=== PATIENT | male | born 1950 | race Caucasian/White ===

== ENCOUNTER 2019-11-25 16:42 | Emergency (ER) | payer MEDICARE, MEDICAID ==
[~2019-11-25] VITALS: Ht 190.5 cm; Wt 159.9 kg
--- NOTE | ~2019-11-25 | EKG ---
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
[2019-11-25 17:26] LABS: ABSOLUTE BASOPHILS 0.1 thou/uL (0.0-0.2); ABSOLUTE EOSINOPHILS 0.4 thou/uL (0.0-0.7); ABSOLUTE LYMPHOCYTES 1.6 thou/uL (0.8-5.3); ABSOLUTE MONOCYTES 0.7 thou/uL (0.0-1.2); ABSOLUTE NEUTROPHILS 4.3 thou/uL (1.6-8.1); EOSINOPHILS 5.4 %; HEMATOCRIT 37.2 % (42.0-52.0); HEMOGLOBIN 12.6 gm/dL (14.0-18.0); LYMPHOCYTES 22.6 %; MCH 32.9 pg (26.0-34.0); MCHC 33.9 g/dL (28.0-37.0); MCV 97.1 fL (80.0-100.0); MONOCYTES 9.9 %; MPV 9.8 fl. (7.2-11.1); NUCLEATED RBCS 0 /100WBC; PLATELET COUNT* 181 thou/uL (150-400); POLYS 61.1 %; RBC 3.83 mil/uL (4.50-6.00); RDW-CV 14.6 % (10.5-14.5); WBC 7.1 thou/uL (4.0-11.0)
[2019-11-25 17:35] LABS: APTT 27.4 Seconds (25.0-31.3); CALCIUM 8.3 mg/dL (8.5-10.1); CREATININE 0.9 mg/dL (0.6-1.3); INR 1.1; POTASSIUM 4.3 mmol/L (3.5-5.1); PROTIME 10.8 Seconds (9.20-11.50)
[2019-11-25 17:45] LABS: ALBUMIN 3.2 g/dL (3.4-5.0); TOTAL BILIRUBIN 0.3 mg/dL (<0.1-1.0); TOTAL PROTEIN 6.9 g/dL (6.4-8.2)
[2019-11-25 19:03] LABS: SALICYLATE < 2.8 mg/dL (2.8-20.0)
[2019-11-25 19:04] LABS: ACETAMINOPHEN < 2 ug/mL (10-30); ALCOHOL < 10 mg/dL (<10)
[2019-11-25 20:45] LABS: URINE BILIRUBIN NEGATIVE (Negative); URINE BLOOD NEGATIVE (Negative); URINE CLARITY CLEAR; URINE COLOR YELLOW; URINE GLUCOSE-RANDOM NEGATIVE (Negative); URINE KETONES NEGATIVE (Negative); URINE LEUKOCYTES-REFLEX NEGATIVE (Negative); URINE NITRITE-REFLEX NEGATIVE (Negative); URINE PROTEIN NEGATIVE (Negative); URINE SPECIFIC GRAVITY >= 1.030 (1.005-1.030)
[2019-11-25 21:03] LABS: AMP/METHAMP Negative (Negative); BARBITURATES Negative (Negative); BENZODIAZEPINES Negative (Negative); COCAINE Negative (Negative); METHADONE Negative (Negative); OPIATES Negative (Negative); PCP Negative (Negative); THC Negative (Negative)
[2019-11-26 00:11] VITALS: BP 124/59
== END 2019-11-26 00:11 | disposition home or self-care (01) ==
LOC: M.ERS 16:42
PROVIDERS: Emergency Medicine Emergency Medical Services
DX: F32.9 Major depressive disorder, single episode, unspecified (principal); R06.02 Shortness of breath; R60.0 Localized edema; E78.5 Hyperlipidemia, unspecified; I48.91 Unspecified atrial fibrillation

== ENCOUNTER 2020-02-16 11:15 | Inpatient (IN) | payer MEDICARE, MEDICAID ==
[~2020-02-16] VITALS: Ht 182.9 cm; Wt 169.5 kg
--- NOTE | ~2020-02-16 | CON ---
[address] [address] CONSULTATION Name: MARYLINENEDELIA Cheng Room: [address] IN M.R.#: [id number] Admission: 02/16/20 Attend Phys: Patricia Dueñas Discharge: Date of : 50 Report #: [id number] THIS REPORT FOR: //name// cc: Lan Nguyen MD, Srinath MD ~ THIS REPORT FOR: //name// CC: Patricia Retana DATE OF SERVICE: 02/22/2020 HISTORY OF PRESENT ILLNESS: This is a 69-year-old male patient who was evaluated by me for headache. The patient is very irritated at the moment and his cooperation is not very good. The best I can tell his headache started about 2-3 days ago. It started spontaneously without any trauma. It involves the whole head. He does not know any aggravating or relieving factor for the headache, but he indicates it does fluctuate to some extent. REVIEW OF SYSTEMS: A 14-point review of system is carried out. He has a history of wheezing for which he has been tried on medications and has been admitted to the hospital. He said that is a chronic problem, which is going on since he was a child. He has a history of anxiety and depression, but he will not talk too much about it. He is on a pretty heavy dose of bupropion and he is also on duloxetine, so I suspect he has a significant amount of depression in the baseline. His breathing problem is better. As I understand from the records, he has a history of atrial fibrillation and he has been on chronic anticoagulation. He has a history of edema and hyperlipidemia. This is the 14-point review of system, which I can get in this patient. PAST MEDICAL HISTORY: Positive for bronchial asthma. FAMILY HISTORY: Unremarkable. SOCIAL HISTORY: He says he does not drink any alcohol. He used to smoke, but does not smoke now. PHYSICAL EXAMINATION: Indicates he is alert, irritated and angry, but he can tell me what month and what date it is. He knows what hospital he is in. His cranial nerve examination 2-12 is unremarkable. His strength, sensation, reflexes and tone looks symmetrical, although he is weak in all 4 extremities. He has position sense in the lower extremities. Reflexes are difficult to tell as he did not cooperate. He did not cooperate with the fundus examination. He does not appear to have any meningeal sign. He is an obese individual who does not have any thyroid mass. There is no carotid bruit. He does not appear to be much short of breath when I saw at. Cardiac examination [place] [address] CONSULTATION Name: MARYLINENEDELIA Skylar Room: [address] IN .R.#: [id number] Admission: 02/16/20 Attend Phys: Patricia Dueñas Discharge: Date of : 50 Report #: [id number] pressure is 149/92, respirations are 20, pulse is 85, temperature is 98. He had an MRI of the brain, which does not demonstrate any abnormality of the brain, but has a problem with the left parotid gland. His blood gases does not show much increase in carbon dioxide. IMPRESSION: Pretty difficult to form because the patient has psychiatric issues and is complaining of headache now without any objective findings. I cannot look at the fundus to rule out the possibility of pseudotumor cerebri, but the headache is of recent onset. I talked to him that he needs some further workup. I suggested that we get his sed rate done. I do not know how good his memory is. I will get a TSH and vitamin B12 done. I will also get an MRV done as well as MRA of the rincon of [place] done because he is complaining of this pretty severe headache. His parotid problems need to be treated, but I am not sure that has anything to do with the patient's headache, but I just wanted to make sure there is no intracranial sinus thrombosis in this patient. The patient understood all those. He reluctantly agreed for the testing. He wants to hold on to the spinal tap, but we may have to do that if the patient's problems continue. Thank you very much for this referral. By: [id number] Duran MD /christine
[2020-02-16 11:17] VITALS: BP 131/85
[2020-02-16] MEDS ORDERED: LIPITOR40 MG PO (11:17)
[2020-02-16] MEDS ORDERED: BUPROPION XL150 MG PO (11:18)
[2020-02-16] MEDS ORDERED: FUROSEMIDE 40 M40 MG PO (11:18)
[2020-02-16] MEDS ORDERED: GAVILAX17 GM PO (11:18)
[2020-02-16] MEDS ORDERED: KLOR-CON M2020 MEQ PO (11:19)
[2020-02-16] MEDS ORDERED: REXULTI2 MG PO (11:19)
[2020-02-16] MEDS ORDERED: FLOMAX0.4 MG PO (11:19)
[2020-02-16] MEDS ORDERED: CARVEDILOL12.5 MG PO (11:20)
[2020-02-16] MEDS ORDERED: VITAMIN D350 MCG PO (11:20)
[2020-02-16] MEDS ORDERED: ELIQUIS5 MG PO (11:21)
[2020-02-16] MEDS ORDERED: DOK100 MG PO (11:21)
[2020-02-16] MEDS ORDERED: SENNA PLUS TAB1 EACH PO (11:21)
[2020-02-16] MEDS ORDERED: DRIZALMA SPRINK60 MG PO (11:21)
[2020-02-16] MEDS ORDERED: MAGNESIUM CITR296 ML PO (11:22)
[2020-02-16] MEDS ORDERED: TYLENOL EXTRA500 MG PO (11:22)
[2020-02-16] MEDS ORDERED: IPRAT-ALBUT 0.5-3 ML INH (11:22)
[2020-02-16] MEDS ORDERED: NYSTATIN1 EA10 TOP (11:23)
[2020-02-16] MEDS ORDERED: ZESTRIL2.5 MG PO (11:23)
[2020-02-16 12:05] LABS: ABSOLUTE BASOPHILS 0.1 thou/uL (0.0-0.2); ABSOLUTE EOSINOPHILS 0.4 thou/uL (0.0-0.7); ABSOLUTE LYMPHOCYTES 1.4 thou/uL (0.8-5.3); ABSOLUTE MONOCYTES 0.7 thou/uL (0.0-1.2); ABSOLUTE NEUTROPHILS 4.9 thou/uL (1.6-8.1); BASOPHILS 0.8 %; HEMATOCRIT 38.5 % (42.0-52.0); HEMOGLOBIN 12.9 gm/dL (14.0-18.0); LYMPHOCYTES 18.3 %; MCH 32.5 pg (26.0-34.0); MCHC 33.6 g/dL (28.0-37.0); MCV 96.7 fL (80.0-100.0); MONOCYTES 9.3 %; MPV 9.7 fl. (7.2-11.1); NUCLEATED RBCS 0 /100WBC; PLATELET COUNT* 176 thou/uL (150-400); POLYS 65.6 %; RBC 3.98 mil/uL (4.50-6.00); WBC 7.5 thou/uL (4.0-11.0)
[2020-02-16 12:17] LABS: CALCIUM 7.6 mg/dL (8.5-10.1); CREATININE 0.9 mg/dL (0.6-1.3); POTASSIUM 3.6 mmol/L (3.5-5.1)
[2020-02-16 12:18] LABS: APTT 27.5 Seconds (25.0-31.3); INR 1.1; PROTIME 11.5 Seconds (9.20-11.50)
[2020-02-16 12:28] LABS: MAGNESIUM 1.9 mg/dL (1.8-2.4); TOTAL BILIRUBIN 0.4 mg/dL (<0.1-1.0); TOTAL PROTEIN 6.6 g/dL (6.4-8.2)
--- NOTE | 2020-02-16 13:35 | EKG ---
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: [facility] : 1950 Requested By: Edmund Durham Order Number: [id number] MD: Joesph Rogers Measurements Intervals [place] Rate: 84 P: 14 SD: 175 QRS: -36 QRSD: 154 T: 4 QT: 391 QTc: 463 Interpretive Statements Sinus rhythm Ventricular premature complex Right bundle branch block Compared to ECG 11/25/2019 17:24:05 Ventricular premature complex(es) now present Electronically Signed On 02-16-2020 13:33:33 CDT by Joesph Rogers [email or web address] <ELECTRONICALLY SIGNED> By: Joesph Rogers MD, FAC 02/16/20 1333 1130 1130 Joesph Rogers MD, [facility] /EPI
[2020-02-16 15:18] VITALS: BP 136/73
[2020-02-16 15:24] VITALS: BP 134/74
--- NOTE | 2020-02-16 18:11 | NUR ---
PT A&Ox4. VITALS STABLE. IV PATENT. ON RA. ADMIT COMPLETE. CALL LIGHT WITHIN REACH. FALL PRECAUTIONS IN PLACE. CALL LIGHT WITHIN REACH.
[2020-02-16 20:00] VITALS: BP 150/91
[2020-02-17 00:25] VITALS: BP 141/76
[2020-02-17 04:37] VITALS: BP 142/80
[2020-02-17 04:54] LABS: HEMOGLOBIN 13.1 gm/dL (14.0-18.0); MCH 32.7 pg (26.0-34.0); MCHC 33.7 g/dL (28.0-37.0); MCV 97.2 fL (80.0-100.0); MPV 10.5 fl. (7.2-11.1); RBC 4.01 mil/uL (4.50-6.00); WBC 9.7 thou/uL (4.0-11.0)
[2020-02-17 05:18] LABS: CALCIUM 7.9 mg/dL (8.5-10.1); MAGNESIUM 2.1 mg/dL (1.8-2.4); PHOSPHORUS* 2.8 mg/dL (2.5-4.9); POTASSIUM 3.6 mmol/L (3.5-5.1)
--- NOTE | 2020-02-17 06:12 | NUR ---
PATIENT SLEPT MOST OF THE NIGHT. IV REMAINS SALINE LOCKED. PATIENT WAS PLACED ON OXYGEN AT 2L AND IS SATTING ABOUT 94%. LUNGS REMAINS WHEEZY. PATIENT HAS BEEN INCONTINENT OF BOWEL AND BLADDER. WILL CONTINUE TO MONITOR.
[2020-02-17 08:00] VITALS: BP 154/95
--- NOTE | 2020-02-17 11:22 | NUR ---
ASSUMED PT CARE AT 0730, PT SITTING UP IN BED, A&OX4, SATTING 94% ON 2 L WITH AUDIBLE WHEEZES AND HAD NO C/O PAIN OR SHORTNESS OF BREATH. PT GOAL IS TO TITRATE O2 DOWN AND DECREASE WHEEZES. PT HAD EDEMA NOTED BILATERALLY ON LLE'S AND FEET. PT REFUSED SENNA TODAY R/T DECREASED CONSTIPATION, LAST BM WAS T-1. AM ASSESSMENT CHARTED, MEDS PER MAR, BED IN LOW POSITION, BED ALARM ON, CALL LIGHT W/IN REACH, WILL CONTINUE POC.
[2020-02-17 12:00] VITALS: BP 119/81
--- NOTE | 2020-02-17 14:15 | NUR ---
Pt lives at [facility]. [phone]. Pt has needed DME. Pt to be able to dc back to [facility] when ready to dc. HARESH spoke with Blanca at [facility] who was hopeful pt could go to SNF at dc from hospital if pt would qualify to try to help with strengthening. HARESH explained pt would need to be in agreement, family, and pt would need to qualify for the need for SNF but could keep in mind as a possible dc plan if needed. SW to continue to follow to assist with safe dc planning.
[2020-02-17 16:10] VITALS: BP 109/72
--- NOTE | 2020-02-17 17:21 | NUR ---
NO ACUTE CHANGES THROUGHOUT SHIFT, REFER TO CHARTING. PT INCONTINENT OF BOWEL AND BLADDER MULTIPLE TIMES THROUGHOUT SHIFT. POSSIBLE DC BACK TO [facility] TOMORROW. DENIES ANY PAIN OR SHORTNESS OF BREATH. MEDS PER DEC, HOURLY ROUNDING OBSERVED, CALL LIGHT W/IN REACH, BED IN LOW POSITION, BED ALARM ON, WILL CONTINUE POC.
[2020-02-17 20:55] VITALS: BP 136/83
[2020-02-18] VITALS: BP 137/86
[2020-02-18 04:00] VITALS: BP 155/64
[2020-02-18 04:51] LABS: ALBUMIN 3.1 g/dL (3.4-5.0); CALCIUM 8.3 mg/dL (8.5-10.1); CREATININE 0.9 mg/dL (0.6-1.3); MAGNESIUM 2.1 mg/dL (1.8-2.4); PHOSPHORUS* 2.9 mg/dL (2.5-4.9); POTASSIUM 3.7 mmol/L (3.5-5.1)
--- NOTE | 2020-02-18 05:35 | NUR ---
2 + EDEMA IN LOWER EXTREMETIES, WEHEEZING SOUNDS IN LUNGS. INCONTINENT OF URINE. SLEPT THROUGH THE SHIFT, NO REPORTS OF PAIN OR NAUSEA OR VOMITING. PLAN IS TO CONTINUE BREATHING TREATMENTS AND ROCEPHIN. WEAN OFF O2. WILL CONTINUE TO FOLLOW PLAN OF CARE.
[2020-02-18 07:53] VITALS: BP 162/93
--- NOTE | 2020-02-18 11:33 | NUR ---
ASSUMED PT CARE AT 0730, PT SITTING UP IN BED, A&OX4, SATTING 94% ON 1L, TRACING SR ON THE [employer] INDUSTRIAL DEVELOPMENT CONSULTANT AND HAS NO C/O PAIN OR SHORTNESS OF BREATH. PT CONTINUES TO BE INCONTINENT OF BOWEL AND BLADDER THIS MORNING AND HAS EDEMA ON LE'S AND FEET. PT GOAL IS TO TITRATE OFF O2 AND STEROIDS SO HE CAN WORK ON DISCHARGE PLANNING BACK TO [facility]. AM ASSESSMENT CHARTED, MEDS GIVEN PER MAR, BED IN LOW POSITION, BED ALARM ON, CALL LIGHT W/IN REACH, HOURLY ROUNDING OBSERVED, WILL CONTINUE POC.
[2020-02-18 13:59] VITALS: BP 149/82
[2020-02-18 16:00] VITALS: BP 134/73
--- NOTE | 2020-02-18 18:33 | NUR ---
NO ACUTE CHANGES THROUGHOUT SHIFT, PT STILL ON 1L NC SATTING MID 90'S, TRACING ST ON THE TELECOM SALES CONSULTANT. PT CONTINUED TO BE INCONTINENT OF BOWEL AND BLADDER AND HAD NO C/O PAIN OR SHORTNESS OF BREATH. MED GIVEN PER DEC, HOURLY ROUNDING OBSERVED, TURNED Q2H, BED IN LOW POSITION, CALL LIGHT W/IN REACH, BED ALARM ON, WILL CONTINUE POC.
[2020-02-18 20:29] VITALS: BP 126/68
[2020-02-19] VITALS: BP 149/73
[2020-02-19 03:30] VITALS: BP 126/79
--- NOTE | 2020-02-19 04:49 | NUR ---
SLEPT WELL THROUGH SHIFT. INCONTINENT OF URINE. ON AL OF O2 STILL NOT ABLE TO MAINTAIN OVER 90% ON ROOM AIR. BLE EDEMOUS AND RED. SR/BBB ON MONITOR. WHEEZING AND SOB EASILY WHEN MOVED OR LYING DOWN. RECEIVED ALL MEDS SCHEDULED. WILL CONTINUE TO FOLLOW PLAN OF CARE.
[2020-02-19 05:38] LABS: GLYCOHEMOGLOBIN (HGB A1C) 5.8 % (4.8-5.6)
[2020-02-19 07:48] VITALS: BP 122/89
--- NOTE | 2020-02-19 10:54 | NUR ---
ASSUMED PT CARE AT 0730, PT SITTING UP IN BED, A&OX4, SATTING 94% ON 1L, TRACING SR W/ A BBB ON THE MICROGRINDER OPERATOR AND HAS NO C/O PAIN OR SHORTNESS OF BREATH. PT SAW THIS MORNING AND GOAL IS TO TITRATE OFF O2 TODAY AND WORK W/ PT TO INCREASE ACTIVITY. PT HGBA1C ELEVATED, METFORMIN GIVEN PER MAR. AM ASSESSMENT CHARTED, MEDS GIVEN PER MAR, HOURLY ROUNDING OBSERVED, BED IN LOW POSITION, CALL LIGHT W/IN REACH, BED ALARM ON, WILL CONTINUE POC.
[2020-02-19 12:18] VITALS: BP 147/87
[2020-02-19 18:35] VITALS: BP 132/83
--- NOTE | 2020-02-19 18:41 | NUR ---
NO ACUTE CHANGES THROUGHOUT SHIFT, PT CONTINUES TO BE INCONTINENT OF BOWEL AND BLADDER AND HAD A BM TODAY. PT WEANED COMPLETELY OFF OF O2 AND SATTING IN MID 90'S. PT HAD NO C/O SHORTNESS OF BREATH OR PAIN. DIETARY CONSULT IN PLACE FOR ELEVATED HGBA1C AND BLOOD SUGARS. MEDS GIVEN PER MAR, BED IN LOW POSITION, BED ALARM ON, CALL LIGHT W/IN REACH, WILL CONTINUE POC.
[2020-02-19 20:00] VITALS: BP 145/71
[2020-02-20] VITALS (7 sets, daily range): BP systolic 119–169; BP diastolic 65–96
--- NOTE | 2020-02-20 04:39 | NUR ---
ASSUMED CARE FROM DAY SHIFT , PT RESTING IN BED, DENIES PAIN OR SOA. ASSESSSMENT COMPLETED PT INCONTINENT OF LARGE AMOUBT OF URINE. SKIN INTACT. PT TURN EVERY 2 HOURS.REFUELER SHOWS NSR WITH BBB 70'S. PT RESTED WELL THROUGHOUT HOURLY ROUNDS. WILL REPORT CHANGES OR ABNORMAL FINDINGS.
--- NOTE | 2020-02-20 12:33 | NUR ---
Per , anticipate dc tomorrow. Pt continues to be wheezy today.
--- NOTE | 2020-02-20 19:02 | NUR ---
ASSUMED PT CARE REPORT RECEIVED FROM NURSE PT IS AOX4 FORGETFUL. ON RA. THEN PT COMPLAINS OF SOB. PLACED ON 2 L NC. OUT OF BED TO CHAIR WITH HELP MAXIMUM HELP AND GAIT BELT. INCONTINENT. BEDBATH GIVEN. VSS. PT COMPLAINS OF HEADACHE TYLENOL GIVEN. CALL LIGTH WITHIN REACH.
--- NOTE | 2020-02-20 19:06 | NUR ---
CHEST AMPARO SHOWS PNEUMONIITS. BREATHING TREATMENT ON EMAR. PT LUNG SOUND WHEEZY.
[2020-02-21 04:00] VITALS: BP 115/77
[2020-02-21 08:00] VITALS: BP 124/67
--- NOTE | 2020-02-21 09:40 | NUR ---
ASSUMED PT CARE REPORT RECEIVED FROM NURSE. PT IS AOX4. COMPLAINS OF HEADACHE. FIORICET GIVEN ALONG WITH OTHER MEDICATIONS. HOWEVER PT STILL COMPLAINS OF HEADACHE. MADE AWARE FOR NEW ORDER. PULMONOLOGY CONSULTED. INCENTIVE SPIROMETER ORDERED. ABG ORDERED. CHANGE IN BREATHING TREATMENT MADE. O2 TO BE TITRATED TO 2 L AND MAINTAIN OXYGENATION ABOVE 90%. PT OUT OF BED TO CHAIR. VSS. TRACING SR BBB / PVC ON HORSE FARM MANAGER. CALL LIGHT AT REACH. WILL CONTINUE TO MONITOR
[2020-02-21 09:59] LABS: BE 1.3 mmol/L (-2 to +3); PO2 82.5 mmHg (75.0-100.0); pH 7.391 (7.340-7.450)
--- NOTE | 2020-02-21 11:39 | NUR ---
PT INSTRUCTED HOW TO USE INCENSIVE SPIROMETER AT BEDSIDE. OXYGEN TITRATED DOWN TO 2 L NC. PHNERGAN AND BENADRYL IV GIVEN ORDERED TO MAKE PT FEEL BETTER WITH MIGRAINE. NEW IV PLACED IN RIGHT FOREARM. CALL LIGHT AT REACH. WILL CONTINUE TO MONITOR
[2020-02-21 12:28] VITALS: BP 138/61
--- NOTE | 2020-02-21 14:03 | NUR ---
DC pending medical stability; possible dc tomorrow. SW to continue to follow to assist with safe dc planning.
--- NOTE | 2020-02-21 14:58 | NUR ---
CT OF HEAD PERFORMED ORDERED. COMMUNICATED WITH RADIOLOGIST WHO STATED THAT THE PATIENT RESULT ARE CONCERNING. THIS WAS COMMUNICATED TO DR SCHAEFER WHO ORDERED A STAT MRI. MRI QUESTIONAIRE FILLED WITH HELP FROM [facility] NURSE. ACCORDING TO THE NURSE I SPOKE TO PT DOES NOT HAVE HX OF STROKE. PT HAS BEEN WEAK SINCE ADMISSION AND [facility]CHA[facility]. WILL CONTINUE TO MONITOR.
--- NOTE | 2020-02-21 16:39 | NUR ---
MRI RESULT CAME BACK. NO STROKE NOTED PER RESULT.
[2020-02-21 16:47] VITALS: BP 115/70
--- NOTE | 2020-02-21 17:11 | NUR ---
O2 TITRATED DOWN TO 1/2 A LITER OF O2 ON NC. O2 SATURATION ON 1/2 L O2 IS 97%. NO SHORTNESS OF BREATH , PT HAS BEEN USING INCENSIVE SPIROMETER. PT USED THE IS AT THIS TIME. PT REACHES 1000 LEVEL ON SPIROMETER. METFORMIN GIVEN. PT STATES HE FEELS BETTER. IV ANTIBIOTIC ADMINISTERED ORDERED. CALL IGHT WITHIN REACH
--- NOTE | 2020-02-21 18:43 | NUR ---
pt complains of headache again this afternnon. rated pain level at a 10/10. dr was notified of mri result suggesting sialadenitis. fioricet given again for headache. pt also repostioned. will continue to monitor
[2020-02-21 20:00] VITALS: BP 113/69
[2020-02-21 23:26] VITALS: BP 130/76
[2020-02-22 04:00] VITALS: BP 130/69
--- NOTE | 2020-02-22 04:43 | NUR ---
PATIENT HAS FREQUENT C/O HEADACHE DESPITE MEDICATION, RELAXATION, AND REPOSITIONING. PATIENT STATES OFTEN THAT HE WANTS TO BE RELEASED BACK TO [facility]. PATIENT REMAINS ON 0.5L O2 NC. AUDIBLE WHEEZES. PATIENT WAS RELUCTANT TO TAKE BREATHING TX, HOWEVER, EDUCATION PROVIDED ON HIS DIAGNOSIS AND IMPORTANCE OF TREATMENT. PATIENT AGREED TO BREATHING TX. PATIENT ALSO ENCOURAGED TO USE INCENTIVE SPIROMETER AND WITNESSED PATIENT USING A FEW TIMES THIS SHIFT. PATIENT INCONTINENT OF LARGE AMOUNTS OF URINE. JANES CARE PROVIDED WITH INCONTINENCE CHECKS.
[2020-02-22 08:00] VITALS: BP 149/92
--- NOTE | 2020-02-22 12:21 | NUR ---
Per , anticipate that Pt will be ready to dc tomorrow. Spoke with Molly at [facility], they would like skilled for pt prior to returning, Dr in agreement. Updated Pt and sister, faxed referral to [facility], awaiting decision to accept. Following.
--- NOTE | 2020-02-22 15:40 | NUR ---
ASSUMED PT CARE AT 0730AM REPORT RECEIVED FROM NURSE.PTIS AOX4. COMPLAINS OF HEADACHE. NO MEDICINE DUE AT 0800 AM YET. VSS. O2 SATURATION 94% ON RA. PT REMAINS OF ROOM AIR AT THIS TIME. USES INCENTIVE SPIROMETER MULTIPLE TIME. ACCUCHECK. ONETIME DOSE OF REGLAN AND TORADOL GIVEN. PT STATES RELIEF FROM HEADACHE.BUT RELIEF DID NOT LAST LONG. PT THEN WAS GIVEN NORCO FOR HEADACHE. PT ASSISTED OUT OF BED TO CHAIR, ATE BREAKFAST. WENT FOR MRA AT 1400. ATIVAN GIVEN PRIOR TO MRA TESTING. NO FURTHER COMPLAINT. CALL LIGHT WITHIN REACH WILL CONTINUE TO MONITOR PT.
[2020-02-22 16:00] VITALS: BP 120/76
--- NOTE | 2020-02-22 18:21 | NUR ---
pt complains of sob this pm at around 1700. wheezy sound of lungs. oxygen provided at 2 l nc. o2 saturation is 97% on 2 l nc. the doctor was notified.
--- NOTE | 2020-02-22 18:55 | CON ---
[address] [address] CONSULTATION Name: ENEDELIA COULTER Room: [address] IN M.R.#: [id number] Admission: 02/16/20 Attend Phys: Patricia Dueñas Discharge: Date of : 50 Report #: [id number] THIS REPORT FOR: //name// cc: Lan Nguyen MD, Srinath MD ~ THIS REPORT FOR: //name// CC: Patricia Retana DATE OF SERVICE: 02/22/2020 I was asked to see this 69-year-old gentleman for acute respiratory failure. HISTORY OF PRESENT ILLNESS: The patient has remote minimal history of smoking. He is a long-term resident. He was brought to the Emergency Room via EMS for shortness of breath. He has asthma. He has been on and off oxygen since his admission. He does snore and has excessive daytime sleepiness, but has not had sleep study. He is obese. He has history of paroxysmal atrial fibrillation, is on anticoagulation. His shortness of breath has improved. He has occasional cough. He denies fever or chills. He denies body ache. He denies chest pain. PAST MEDICAL HISTORY: Asthma, paroxysmal atrial fibrillation, hyperlipidemia, obesity, anxiety and depression. ALLERGIES: No known drug allergies. MEDICATIONS: Currently, he is on Brovana, budesonide, doxycycline, DuoNeb, Levaquin, metformin, Solu-Medrol 62.5 mg b.i.d. SOCIAL HISTORY: He is a long-term resident. FAMILY HISTORY: Hypertension. REVIEW OF SYSTEMS: As mentioned as above. He has had lower extremity edema which is improving. Other systems are otherwise negative. PHYSICAL EXAMINATION: GENERAL: This is an obese gentleman. VITAL SIGNS: His O2 saturation on 0.5 liter of oxygen is 93%, respiratory rate 18, heart rate 84, blood pressure 130/69, temperature 36.5. HEENT: Normocephalic, atraumatic. Pupils equal, round, reactive to light. There is shallow oropharynx. Nose is clear. NECK: There is no lymphadenopathy [place] [address] CONSULTATION Name: ENEDELIA COULTER Room: [address] IN [facility]#: [id number] Admission: 02/16/20 Attend Phys: Patricia Dueñas Discharge: Date of : 50 Report #: [id number] CARDIOVASCULAR: Regular rate and rhythm. PMI is nondisplaced. CHEST: Inspection is normal. LUNGS: There are bibasilar crackles, dullness at the bases. ABDOMEN: Soft and obese. Bowel sounds are good. There is no mass. EXTREMITIES: There is edema. LYMPHATICS: There is no lymphadenopathy. NEUROLOGIC: Alert. SKIN: Chronic changes. LABORATORY DATA: I reviewed the following lab data: CT of the chest on 02/15 did show multiple pulmonary nodules, right more than left; ground glass opacity, anterior right upper lung appears to be chronic. Chest x-ray on 02/20/2020 shows bibasilar infiltrates/atelectasis. WBC 9.7, hemoglobin 13.1, platelets 175. Sodium 142, potassium 3.7, chloride 106, CO2 of 31, BUN 29, creatinine 0.9, glucose 154. Troponin is less than 0.06. BNP 618. ABG on 3 liters of oxygen yesterday; pH 7.39, pCO2 of 45, pO2 of 82. IMPRESSION: 1. Acute on chronic hypoxemic hypercarbic respiratory failure. I suspect he has obesity hypoventilation and chronic hypoxemia. His worsening of respiratory status is due to atelectasis, acute bronchitis versus pneumonia, acute exacerbation of asthma. I highly suspect he has obstructive sleep apnea-hypopnea syndrome. Rule out acute diastolic congestive heart failure. 2. Abnormal chest x-ray/ct of chest. 3. Acute bronchitis versus pneumonia. 4. Asthma with acute exacerbation. 5. Obesity, snoring and excessive daytime sleepiness, highly suspect he has obstructive sleep apnea-hypopnea syndrome and obesity hypoventilation syndrome. 6. Paroxysmal atrial fibrillation, on apixaban. PLAN AND RECOMMENDATIONS: 1. Titrate FiO2 to keep O2 saturation 90%. 2. Incentive spirometer to use multiple times an hour. 3. Continue Brovana. 4. Continue Pulmicort. 5. Continue steroid, may change to prednisone as his respiratory status is improving. 6. I do recommend a sleep study as an outpatient. 7. Continue antibiotic for a total of 7 days. 8. Continue apixaban. 9. Echocardiogram if it is not done. 10. I suspect he would require oxygen at discharge. 11. ct showed b lat pulm nodules, i do recommend pet scan as out pt. The findings and recommendations were discussed with the [place] [address] CONSULTATION Name: ENEDELIA COULTER Room: [address] IN M.R.#: [id number] Admission: 02/16/20 Attend Phys: Patricia Dueñas Discharge: Date of : 50 Report #: [id number] Thank you very much for allowing me to participate in care of this very nice gentleman. <ELECTRONICALLY SIGNED> By: George Peter MD 02/22/20 1855 [id number] [id number] Peter MD /nt
[2020-02-22 20:00] VITALS: BP 141/95
[2020-02-23 00:09] VITALS: BP 156/82
[2020-02-23 04:01] VITALS: BP 133/76
--- NOTE | 2020-02-23 05:09 | NUR ---
ASSESSMENTS COMPLETED AT BEDSIDE, PLEASE SEE CHARTING FOR DETAILS. MEDICATIONS ADMINISTERED PER DEC. PT HAS REPORTED NO PAIN THIS SHIFT BUT HAS STATED THAT HE IS UNCOMFORTABLE AND UNABLE TO SLEEP. NEW ORDERS RECIEVED BY PHYSICIAN AND WORKED EFFECTIVELY PT IS CURRENTLY ASLEEP WITH BED ALARM ON AND CALL LIGHT WITHIN REACH.
[2020-02-23] MEDS ORDERED: BROVANA15 MCG/2 M INH (10:49)
[2020-02-23] MEDS ORDERED: DOXYCYCLINE 10100 MG PO (10:49)
[2020-02-23] MEDS ORDERED: PULMICORT0.5 MG/2 M INH (10:49)
[2020-02-23] MEDS ORDERED: BUPROPION XL150 MG PO (10:49)
[2020-02-23] MEDS ORDERED: DRIZALMA SPRINK60 MG PO (10:49)
[2020-02-23] MEDS ORDERED: PREDNISONE 10 M10 MG PO (10:50)
[2020-02-23 11:37] VITALS: BP 151/75
--- NOTE | 2020-02-23 11:57 | NUR ---
Pt discharging to [facility] Skilled today, facility to bulk picker at 3pm. Faxed dc orders. Chart copied. Nurse report number is [id number]. Updated Pt's sister and [facility].
--- NOTE | 2020-02-23 13:28 | NUR ---
RAFIA CALLED TO [facility] AT OR. WILL DISCONTINUE IV AND TELE AND DISCHARGE TO OR VIA WHEELCHAIR VAN.
== END 2020-02-23 17:15 | DRG 189 ==
LOC: M.ERS 11:15 → M.2W 13:11 → M.TBA-ER 13:11 → M.2W 15:10
PROVIDERS: Family Medicine; Internal Medicine; Internal Medicine Pulmonary Disease; ADMIT Family Medicine
DX: J96.21 Acute and chronic respiratory failure with hypoxia (principal); J15.6 Pneumonia due to other Gram-negative bacteria; J45.901 Unspecified asthma with (acute) exacerbation; D68.59 Other primary thrombophilia; I50.32 Chronic diastolic (congestive) heart failure; Z68.43 Body mass index [BMI] 50.0-59.9, adult; I48.20 Chronic atrial fibrillation, unspecified; F41.9 Anxiety disorder, unspecified; F32.9 Major depressive disorder, single episode, unspecified; E78.5 Hyperlipidemia, unspecified; I11.0 Hypertensive heart disease with heart failure; K59.00 Constipation, unspecified; J20.9 Acute bronchitis, unspecified; I48.0 Paroxysmal atrial fibrillation; E66.9 Obesity, unspecified; J96.22 Acute and chronic respiratory failure with hypercapnia; Z82.49 Family history of ischemic heart disease and other diseases of the circulatory system; Z87.891 Personal history of nicotine dependence; Z79.899 Other long term (current) drug therapy